=== PATIENT | male | born 1980 | race Two or more races ===

== ENCOUNTER 2016-10-08 09:10 | Day surgery (SDC) | payer OTHER ==
[~2016-10-08 09:10] MED LIST: FENTANYL 250 MCG/5 ML AMP IV PRN; LACTATED RINGERS 1,000 ML IV SCH; LIDOCAINE Viscous 2% 15 ML UDCUP PO PRN; MIDAZOLAM HCL 5 MG/5 ML VIAL IV PRN
[2016-10-08] MEDS ORDERED: IV START KIT ONE (10:15)
[2016-10-08] MEDS ORDERED: LACTATED RINGERS 1,000 ML ONE (10:15)
[2016-10-08] MEDS ORDERED: FENTANYL 100 MCG/2 ML VIAL ONE (11:02)
[2016-10-08] MEDS ORDERED: LIDOCAINE Viscous 2% 15 ML UDCUP ONE (11:02)
[2016-10-08] MEDS ORDERED: MIDAZOLAM HCL 5 MG/5 ML VIAL ONE (11:02)
[2016-10-08 19:10] LABS: HELICOBACTER PYLORII DETECTION NEGATIVE (NEGATIVE)
--- NOTE | 2016-10-12 14:34 | SURGPATH ---
[facility] [address] [place] [id number] Patient Name: KIM ARELLANO MR#: [id number] : 1980 Gender: M Specimen #: [id number] Collected: 10/08/2016 Received: 10/11/2016 Reported: 10/12/2016 Submitting Phys: ANGELA ARMIJO Copy To Phys: [facility] Clinical History / Pre-Operative Diagnosis: HEARTBURN; ACID REFLUX; RULE OUT CELIAC SPRUE, GIARDIA AND GASTRITIS Specimen Source / Surgical Procedure Performed: #1-DUODENAL; #2-ANTRAL Interpretation: 1. DUODENUM, BIOPSY: - NONSPECIFIC FOCAL ACTIVE INFLAMMATION 2. STOMACH, ANTRUM, BIOPSY: - NO DIAGNOSTIC ABNORMALITIES - NO HELICOBACTER ORGANISMS SEEN ON ROUTINE STAIN Electronically Signed Out Paz Duncan M.D. Gross Description: #1 The specimen is received in a formalin filled container labeled with the patient's name and "duodenal". Two dumont biopsies are 0.3 and 0.4 cm. Totally embedded in cassette #1. #2 The specimen is received in a formalin filled container labeled with the patient's name and "antral". Two dumont biopsies are each 0.5 cm. Totally embedded in cassette #2. Doug Williamson Microscopic Description: Part 1: Sections show duodenal mucosa with overall intact architecture with a villous to crypt ratio of three to one. No increased intraepithelial lymphocytes, gastric metaplasia, or evidence of Giardia are seen on routine stain. No malignancy is seen. A few neutrophils are seen in the lamina propria. There are some focal reactive changes. Part 2: Sections show gastric antral and oxyntic mucosa with overall intact architecture. No significant active or chronic inflammation is seen. No Helicobacter organisms are seen on routine stain. No dysplasia or malignancy is seen. 1: [id number] 2: [id number] K29.80
== END 2016-10-08 12:20 | disposition home or self-care (01) ==
LOC: SDC 09:10
PROVIDERS: ATTEND Internal Medicine Gastroenterology
PROC: 0DB98ZX Excision of Duodenum, Via Natural or Artificial Opening Endoscopic, Diagnostic (ICD-10-PCS; principal; 2016-10-08)
PROC: 0DB68ZX Excision of Stomach, Via Natural or Artificial Opening Endoscopic, Diagnostic (ICD-10-PCS; 2016-10-08)
DX: K29.70 Gastritis, unspecified, without bleeding (principal); K29.80 Duodenitis without bleeding; Z87.891 Personal history of nicotine dependence
CPT/HCPCS: 87081; 43239; J3010; J2250; A9270; J7120